=== PATIENT | male | born 1990 | race Hispanic/Latino ===

== ENCOUNTER → 2020-03-04 | Outpatient (CLI) | payer OTHER ==
--- NOTE | 2020-03-04 14:47 | Diagnostic Imaging Report ---
TECHNIQUE: Magnetic resonance imaging of the RIGHT KNEE was performed WITHOUT injected contrast. HISTORY: Knee pain, acute COMPARISON: None available. FINDINGS: LIGAMENTS AND TENDONS: ACL: Intact PCL: Intact Collateral ligaments: Intact Iliotibial band: Unremarkable Popliteal tendon: Intact Extensor mechanism: Intact JOINT: Menisci: Medial: Intact Lateral: Complex vertical longitudinal tear of the posterior horn and body with flipped fragment anteriorly and centrally into the intercondylar notch. Articular Cartilage: Medial Compartment: No focal defect. Lateral Compartment: Diffuse high-grade cartilage loss with areas of full-thickness erosion and subchondral edema. Patellofemoral Compartment: No focal defect. Joint Fluid: Small joint effusion. 1.6 cm intra-articular body suprapatellar recess. BONE: No focal or infiltrative bone marrow replacing abnormality. No acute fracture. SOFT TISSUES: Otherwise, unremarkable. IMPRESSION: Lateral meniscus complex vertical longitudinal tear posterior body and horn with flipped fragment anteriorly and centrally. Lateral tibiofemoral compartment regions of full-thickness cartilage loss. Joint effusion with 1.6 cm intra-articular body suprapatellar recess. Signed by: Dr. Tico Tran M.D. on 03/04/2020 2:43 PM
== END ==
LOC: MRI 12:20
PROVIDERS: ATTEND Family Medicine
DX: M25.561 Pain in right knee (principal)